=== PATIENT | female | born 1990 | race Caucasian/White ===

== ENCOUNTER 2019-03-15 10:52 | Emergency (ER) | payer MEDICAID ==
[2019-03-15] MEDS: ALBUTEROL 0.083% (NEB) 2.5 MG/3 ML AMP HHN (12:23)
[2019-03-15] MEDS: ACETAMINOPHEN 500 MG TAB PO (12:41)
[2019-03-15] MEDS: DEXAMETHASONE 4 MG TAB PO (12:41)
== END 2019-03-15 13:05 | disposition home or self-care (01) ==
LOC: FTE 10:52
DX: O99.512 Diseases of the respiratory system complicating pregnancy, second trimester (principal); J06.9 Acute upper respiratory infection, unspecified; J45.901 Unspecified asthma with (acute) exacerbation; R05 Cough; Z3A.21 21 weeks gestation of pregnancy
CPT/HCPCS: 94664; 99283-25

== ENCOUNTER 2019-05-09 20:56 | Outpatient (CLI) | payer MEDICAID ==
[2019-05-09 22:30] LABS: ADD UMIC NO; UR ASCORBIC ACID NEGATIVE (NEGATIVE); UR BILIRUBIN (Dip) NEGATIVE (NEGATIVE); UR BLOOD (Dip) NEGATIVE (NEGATIVE); UR CLARITY CLEAR (CLEAR); UR COLOR STRAW (YELLOW); UR GLUCOSE (Dip) NEGATIVE (NEGATIVE); UR KETONES (Dip) NEGATIVE (NEGATIVE); UR LEUKOCYTE ESTERASE (Dip) NEGATIVE Leu/ul (NEGATIVE); UR NITRITE (Dip) NEGATIVE (NEGATIVE); UR SPECIFIC GRAVITY (Dip) 1.006 (1.003-1.030); UR TOTAL PROTEIN (Dip) NEGATIVE (NEGATIVE); UR UROBILINOGEN (Dip) NEGATIVE (NEGATIVE)
== END 2019-05-10 00:45 | disposition home or self-care (01) ==
LOC: OBT 20:56 → L-D 20:56
DX: O26.853 Spotting complicating pregnancy, third trimester (principal); O62.9 Abnormality of forces of labor, unspecified; Z3A.28 28 weeks gestation of pregnancy
CPT/HCPCS: 76818; 81003

== ENCOUNTER 2019-07-13 08:46 | Outpatient (CLI) | payer MEDICAID | END 2019-07-13 11:54 | disposition home or self-care (01) | LOC: OBT 08:46 → L-D 08:48 → OBT 11:54 | DX: O62.9 Abnormality of forces of labor, unspecified (principal); Z3A.37 37 weeks gestation of pregnancy | CPT/HCPCS: Z7500 ==

== ENCOUNTER 2019-07-20 13:36 | Inpatient (IN) | payer MEDICAID ==
[~2019-07-20 13:36] MED LIST: METHYLERGONOVINE 0.2 MG INJ; OXYTOCIN 30 UNITS/LR 500 ML BAG IV
[2019-07-20 14:16] LABS: ADD MAN DIFF? NO
[2019-07-20 14:18] LABS: BASOPHIL # 0.1 10^3/ul (0.0-0.1); BASOPHILS % 0.5 % (0.0-2.0); EOSINOPHILS # 0.1 10^3/ul (0.0-0.5); HEMATOCRIT 39.5 % (37.0-47.0); HEMOGLOBIN 12.9 g/dl (12.0-16.0); LYMPHOCYTES # 2.4 10^3/ul (0.8-2.9); LYMPHOCYTES % 26.4 % (15.0-51.0); MEAN CORPUSCULAR HEMOGLOBIN 25.7 pg (29.0-33.0); MEAN CORPUSCULAR HGB CONC 32.7 g/dl (32.0-37.0); MEAN CORPUSCULAR VOLUME 78.7 fl (82.0-101.0); MEAN PLATELET VOLUME 10.6 fl (7.4-10.4); MONOCYTE # 0.8 10^3/ul (0.3-0.9); MONOCYTES % 8.6 % (0.0-11.0); NEUTROPHIL # 5.8 10^3/ul (1.6-7.5); NEUTROPHILS % 63.2 % (39.0-77.0); PLATELET COUNT 271 10^3/UL (140-415); RED BLOOD COUNT 5.02 10^6/ul (4.20-5.40)
[2019-07-20 14:18] LABS: WHITE BLOOD COUNT 9.2 10^3/ul (4.8-10.8)
[2019-07-20] MEDS ORDERED: CARBOPROST 250 MCG INJ IM (14:30)
[2019-07-20] MEDS ORDERED: MISOPROSTOL 200 MCG TAB PR (14:30)
[2019-07-20] MEDS ORDERED: CEFAZOLIN 2 GM/50 ML (PMX) 50 ML IVPB (14:30)
[2019-07-20] MEDS ORDERED: OXYTOCIN 30 UNITS/LR 500 ML IV (14:30)
[2019-07-20] MEDS: LACTATED RINGER'S 1,000 ML IV (14:38)
[2019-07-20 14:55] LABS: HEPATITIS B SURFACE ANTIGEN NEGATIVE (NEGATIVE)
[2019-07-20 16:04] LABS: PROTIME 12.3 Sec (11.9-14.9)
[2019-07-20 16:05] LABS: PARTIAL THROMBOPLASTIN TIME 32.9 Sec (23.0-35.0)
[2019-07-20 17:17] LABS: RAPID PLASMA REAGIN NONREACTIVE (NR)
[2019-07-20] MEDS ORDERED: morphine SULFATE/PF (10 MG/10 ML) INJ (18:21)
[2019-07-20] MEDS ORDERED: FENTAnyl 50 MCG/ML VIAL (18:21)
[2019-07-20] MEDS ORDERED: OXYTOCIN 10 UNIT INJ (18:21)
[2019-07-20] MEDS ORDERED: METOCLOPRAMIDE 10 MG INJ (18:21)
[2019-07-20] MEDS ORDERED: KETOROLAC 30 MG INJ (18:50)
[2019-07-20] MEDS ORDERED: ALBUTEROL 0.083% (NEB) 2.5 MG/3 ML AMP HHN (19:00)
[2019-07-20] MEDS ORDERED: IPRATROPIUM (NEB) 0.5 MG/2.5 ML AMP HHN (19:00)
[2019-07-20] MEDS ORDERED: MIDAZOLAM 1 MG/ML 2 ML INJ IV (19:00)
[2019-07-20] MEDS ORDERED: hydrALAzine 20 MG INJ IV (19:00)
[2019-07-20] MEDS ORDERED: LABETALOL HCL 20MG INJ IV (19:00)
[2019-07-20] MEDS ORDERED: NALBUPHINE HCL (10 MG/1 ML) INJ IV (19:00)
[2019-07-20] MEDS ORDERED: NALOXONE (0.4 MG/ML) INJ IV (19:00)
[2019-07-20] MEDS ORDERED: ONDANSETRON 4 MG INJ IV ×2 (19:00)
[2019-07-20] MEDS ORDERED: FENTAnyl 50 MCG/ML VIAL IV ×3 (19:00)
[2019-07-20] MEDS ORDERED: MEPERIDINE 25 MG INJ IV (19:00)
[2019-07-20] MEDS ORDERED: TRIMETHOBENZAMIDE 100 MG/ML VIAL IM ×2 (19:00)
[2019-07-20] MEDS ORDERED: HYDROmorphONE 1 MG/5 ML IV SYRINGE IV ×3 (19:00)
[2019-07-20] MEDS ORDERED: EPHEDrine 25 MG/5 ML SYG IV (19:00)
[2019-07-20] MEDS ORDERED: morphine 2 MG INJ IV ×2 (19:00)
[2019-07-20] MEDS ORDERED: DIPHENHYDRAMINE 50 MG INJ IV ×2 (19:00)
[2019-07-21] MEDS: METHYLERGONOVINE 0.2 MG INJ IM (02:36)
[2019-07-21] MEDS: OXYTOCIN 30 UNITS/LR 500 ML IV ×2 (02:47→09:39)
[2019-07-21] MEDS: LACTATED RINGER'S 1,000 ML IV ×3 (06:31→09:39)
[2019-07-21] MEDS ORDERED: METHYLERGONOVINE 0.2 MG INJ IM (07:00)
[2019-07-21] MEDS ORDERED: NACL 0.9% 3 ML SYG IV (07:00)
[2019-07-21] MEDS ORDERED: LANOLIN HPA 1 PKT TOP (07:00)
[2019-07-21] MEDS ORDERED: CARBOPROST 250 MCG INJ IM (07:00)
[2019-07-21] MEDS ORDERED: OXYTOCIN 30 UNITS/LR 500 ML IV (07:00)
[2019-07-21] MEDS ORDERED: MISOPROSTOL 200 MCG TAB PR (07:00)
[2019-07-21 08:47] LABS: ADD MAN DIFF? NO
[2019-07-21 08:58] LABS: BASOPHILS % 0.3 % (0.0-2.0); EOSINOPHILS % 0.2 % (0.0-7.0); HEMOGLOBIN 8.6 g/dl (12.0-16.0); LYMPHOCYTES # 1.5 10^3/ul (0.8-2.9); LYMPHOCYTES % 14.8 % (15.0-51.0); MEAN CORPUSCULAR HEMOGLOBIN 25.7 pg (29.0-33.0); MEAN CORPUSCULAR HGB CONC 31.9 g/dl (32.0-37.0); MEAN CORPUSCULAR VOLUME 80.6 fl (82.0-101.0); MONOCYTE # 0.9 10^3/ul (0.3-0.9); NEUTROPHIL # 7.5 10^3/ul (1.6-7.5); NEUTROPHILS % 75.3 % (39.0-77.0); PLATELET COUNT 212 10^3/UL (140-415); RED BLOOD COUNT 3.35 10^6/ul (4.20-5.40); RED CELL DISTRIBUTION WIDTH 16.1 % (11.5-14.5)
[2019-07-21] MEDS: KETOROLAC 30 MG INJ IV (12:31)
[2019-07-21] MEDS: HYDROCODONE/APAP (5/325) TAB PO (21:46)
[2019-07-22] MEDS: IBUPROFEN 800 MG TAB PO ×3 (05:20→22:00)
[2019-07-22] MEDS: HYDROCODONE/APAP (5/325) TAB PO (21:01)
[2019-07-22] MEDS: NA PHOSPHATE/BIPHOS 133 ML ENEMA PR (21:01)
[2019-07-23] MEDS: IBUPROFEN 800 MG TAB PO ×2 (05:36→13:14)
[2019-07-23] MEDS: MEASLES,MUMPS,RUBELLA VACCINE INJ SC* (09:00)
[2019-07-23] MEDS: DIPHTH/TET/ACEL PERTUSS (ADULT) 0.5 ML VIAL IM* (13:15)
== END 2019-07-23 14:25 | disposition home or self-care (01) | DRG 788 ==
LOC: L-D 13:36 → PP1 22:53
PROVIDERS: Obstetrics & Gynecology
PROC: 10D00Z1 Extraction of Products of Conception, Low, Open Approach (ICD-10-PCS; principal; 2019-07-20 18:00)
DX: O65.5 Obstructed labor due to abnormality of maternal pelvic organs (principal); O34.211 Maternal care for low transverse scar from previous cesarean delivery; Z3A.38 38 weeks gestation of pregnancy; Z37.0 Single live birth
CPT/HCPCS: 85025; 85610; 85730; 86592; 86850; 86900; 86901; 87340; 88307; 90715; 99464